=== PATIENT | male | born 1960 | race Caucasian/White ===

== ENCOUNTER 2017-08-24 08:44 | Emergency (ER) | payer OTHER ==
[~2017-08-24] VITALS: Ht 177.8 cm; Wt 68.0 kg
[~2017-08-24 08:44] MED LIST: AMOXICILLIN875 MG PO; ASPIRIN325 OR; CHANTIX1 MG; CO Q-10100 MG PO; CRESTOR20 MG PO; IBUPROFEN 800800 MG PO; IMDUR 30 MG TAB30 M1 PO; KEFLEX500 MG PO; LISINOPRIL10 MG PO; LOPRESSOR; LOPRESSOR25 PO; METFORMIN HCL500 MG PO; MINIPRIN81 MG; MYLANTA 12 OZ355 M1 OR; NITROGLYCERIN0.4 MG SUBLING; NORCO 5-325 TA1 EACH PO; PAIN & FEVER325 MG PO; PERCOCET 5-3251 EACH PO; PLAVIX 75 MG TA75 MG PO; PRINIVIL; PROTONIX40 M2 PO; TOPROL XL25 MG PO; VITCB500GO PO; ZANTAC 150MG T150 MG PO; [UNRECOGNIZED DRUG - OTHER]
[2017-08-24] MEDS ORDERED: BACTRIM DS TAB1 EACH PO (09:20)
[2017-08-24] MEDS ORDERED: TRAMADOL 50 MG50 MG PO (09:20)
[2017-08-24] MEDS ORDERED: KEFLEX500 M1 PO (09:20)
[2017-08-24 10:00] VITALS: BP 153/95
== END 2017-08-24 10:06 | disposition home or self-care (01) ==
LOC: M.ERS 08:44
DX: S51.011A Laceration without foreign body of right elbow, initial encounter (principal); L08.89 Other specified local infections of the skin and subcutaneous tissue; K21.9 Gastro-esophageal reflux disease without esophagitis; I10 Essential (primary) hypertension; E78.00 Pure hypercholesterolemia, unspecified; E11.9 Type 2 diabetes mellitus without complications; F10.99 Alcohol use, unspecified with unspecified alcohol-induced disorder; Z95.5 Presence of coronary angioplasty implant and graft; Z88.8 Allergy status to other drugs, medicaments and biological substances; W18.39XA Other fall on same level, initial encounter; Y93.89 Activity, other specified; Y92.89 Other specified places as the place of occurrence of the external cause; Y99.8 Other external cause status

== ENCOUNTER 2017-12-09 21:17 | Emergency (ER) | payer OTHER ==
[~2017-12-09] VITALS: Ht 180.3 cm; Wt 69.3 kg
[~2017-12-09 21:17] MED LIST changes: +BACTRIM DS TAB1 EACH PO; +KEFLEX500 M1 PO; +TRAMADOL 50 MG50 MG PO
[2017-12-09 21:47] LABS: ABSOLUTE BASOPHILS 0.1 thou/uL (0.0-0.2); ABSOLUTE EOSINOPHILS 0.1 thou/uL (0.0-0.7); ABSOLUTE LYMPHOCYTES 2.1 thou/uL (0.8-5.3); ABSOLUTE MONOCYTES 0.7 thou/uL (0.0-1.2); ABSOLUTE NEUTROPHILS 3.6 thou/uL (1.6-8.1); BASOPHILS 0.9 %; EOSINOPHILS 1.3 %; HEMATOCRIT 47.1 % (42.0-52.0); HEMOGLOBIN 15.9 gm/dL (14.0-18.0); LYMPHOCYTES 31.8 %; MCH 32.1 pg (26.0-34.0); MCHC 33.9 g/dL (28.0-37.0); MCV 94.9 fL (80.0-100.0); MPV 8.5 fl. (7.2-11.1); NUCLEATED RBCS 0 /100WBC; PLATELET COUNT* 255 thou/uL (150-400); RBC 4.96 mil/uL (4.50-6.00); RDW-CV 14.8 % (10.5-14.5); WBC 6.5 thou/uL (4.0-11.0)
[2017-12-09 21:58] LABS: CALCIUM 8.7 mg/dL (8.5-10.1); CREATININE 1.1 mg/dL (0.6-1.3); POTASSIUM 3.3 mmol/L (3.5-5.1)
[2017-12-09 22:02] LABS: ALBUMIN 3.9 g/dL (3.4-5.0); TOTAL BILIRUBIN 0.4 mg/dL (<0.1-1.0); TOTAL PROTEIN 7.3 g/dL (6.4-8.2)
[2017-12-09 22:05] LABS: ACETAMINOPHEN < 2 ug/mL (10-30); ALCOHOL 236 mg/dL (<10); SALICYLATE < 2.8 mg/dL (2.8-20.0)
[2017-12-10 03:45] LABS: URINE BILIRUBIN NEGATIVE (Negative); URINE BLOOD NEGATIVE (Negative); URINE CLARITY CLEAR; URINE COLOR YELLOW; URINE GLUCOSE-RANDOM NEGATIVE (Negative); URINE KETONES NEGATIVE (Negative); URINE LEUKOCYTES-REFLEX NEGATIVE (Negative); URINE NITRITE-REFLEX NEGATIVE (Negative); URINE PROTEIN NEGATIVE (Negative); URINE UROBILINOGEN 0.2 E.U./dl (0.2-1.0)
[2017-12-10 03:53] LABS: AMP/METHAMP Negative (Negative); BARBITURATES Negative (Negative); BENZODIAZEPINES Negative (Negative); COCAINE Negative (Negative); METHADONE Negative (Negative); OPIATES Negative (Negative); PCP Negative (Negative); THC Negative (Negative)
[2017-12-10 06:21] VITALS: BP 147/97
== END 2017-12-10 06:25 | disposition home or self-care (01) ==
LOC: M.ERS 21:17
PROVIDERS: Family Medicine
DX: S51.812A Laceration without foreign body of left forearm, initial encounter (principal); F10.129 Alcohol abuse with intoxication, unspecified; K21.9 Gastro-esophageal reflux disease without esophagitis; E78.00 Pure hypercholesterolemia, unspecified; I10 Essential (primary) hypertension; E11.9 Type 2 diabetes mellitus without complications; F32.9 Major depressive disorder, single episode, unspecified; Z95.5 Presence of coronary angioplasty implant and graft; Z88.8 Allergy status to other drugs, medicaments and biological substances; W26.8XXA Contact with other sharp object(s), not elsewhere classified, initial encounter; Y93.89 Activity, other specified; Y92.89 Other specified places as the place of occurrence of the external cause; Y99.8 Other external cause status

== ENCOUNTER 2018-01-26 02:48 | Emergency (ER) | payer OTHER ==
[~2018-01-26] VITALS: Ht 177.8 cm; Wt 69.0 kg
[2018-01-26] MEDS ORDERED: METFORMIN HCL500 MG (03:00)
[2018-01-26 03:16] LABS: URINE BILIRUBIN NEGATIVE (Negative); URINE BLOOD NEGATIVE (Negative); URINE CLARITY CLEAR; URINE COLOR YELLOW; URINE GLUCOSE-RANDOM NEGATIVE (Negative); URINE KETONES NEGATIVE (Negative); URINE LEUKOCYTES-REFLEX NEGATIVE (Negative); URINE NITRITE-REFLEX NEGATIVE (Negative); URINE PROTEIN NEGATIVE (Negative); URINE SPECIFIC GRAVITY 1.015 (1.005-1.030); URINE UROBILINOGEN 0.2 E.U./dl (0.2-1.0)
[2018-01-26 03:30] LABS: ABSOLUTE BASOPHILS 0.1 thou/uL (0.0-0.2); ABSOLUTE EOSINOPHILS 0.2 thou/uL (0.0-0.7); ABSOLUTE LYMPHOCYTES 1.4 thou/uL (0.8-5.3); ABSOLUTE MONOCYTES 0.6 thou/uL (0.0-1.2); ABSOLUTE NEUTROPHILS 4.4 thou/uL (1.6-8.1); BASOPHILS 0.8 %; EOSINOPHILS 2.4 %; HEMATOCRIT 42.5 % (42.0-52.0); HEMOGLOBIN 14.4 gm/dL (14.0-18.0); LYMPHOCYTES 21.3 %; MCHC 33.8 g/dL (28.0-37.0); MCV 94.8 fL (80.0-100.0); MONOCYTES 8.4 %; MPV 8.4 fl. (7.2-11.1); NUCLEATED RBCS 0 /100WBC; PLATELET COUNT* 261 thou/uL (150-400); POLYS 67.1 %; RBC 4.48 mil/uL (4.50-6.00); RDW-CV 15.7 % (10.5-14.5); WBC 6.6 thou/uL (4.0-11.0)
[2018-01-26 03:46] LABS: ANION GAP 3 mmol/L (7-16); BUN 12 mg/dL (7-18); CALCIUM 9.9 mg/dL (8.5-10.1); CHLORIDE 105 mmol/L (98-107); CO2 33 mmol/L (21-32); CREATININE 1.1 mg/dL (0.6-1.3); GLUCOSE 133 mg/dL (70-99); POTASSIUM 4.1 mmol/L (3.5-5.1); SODIUM 141 mmol/L (136-145)
[2018-01-26 03:56] LABS: ALBUMIN 3.6 g/dL (3.4-5.0); ALKALINE PHOSPHATASE 45 U/L (46-116); LIPASE 189 U/L (73-393); SGOT 38 U/L (15-37); SGPT 36 U/L (30-65); TOTAL BILIRUBIN 0.4 mg/dL (<0.1-1.0); TROPONIN-I LEVEL <0.06 ng/mL (<0.06)
[2018-01-26] MEDS ORDERED: HYDROCODON-ACE1 EAC7 PO (06:29)
[2018-01-26] MEDS ORDERED: ZOFRAN4 MG PO (06:29)
[2018-01-26 06:36] VITALS: BP 137/82
--- NOTE | 2018-01-26 14:31 | EKG ---
[place] [address] ELECTROCARDIOGRAM REPORT Name: CHAPISOMAYRA SANDRA Room: [facility]#: [id number] Admission: 01/26/18 Attend Phys: Discharge: 01/26/18 Date of : 60 Report #: [id number] THIS REPORT FOR: //name// [facility] ED Test Date: 2018-01-26 Test Time: 03:13:31 Pat Name: OMAYRA NATION Department: Room: Gender: M Hospital Intern: MS : 1960 Requested By: Mahamed Goldberg Order Number: [id number] MD: Jose Juan Barry Measurements Intervals [place] Rate: 56 P: 48 WV: 162 QRS: 53 QRSD: 92 T: 40 QT: 419 QTc: 405 Interpretive Statements Sinus rhythm Probable left atrial enlargement Compared to ECG 06/24/2017 03:48:33 No significant changes Electronically Signed On 01-26-2018 14:31:26 CDT by Jose Juan Barry [email or web address] <ELECTRONICALLY SIGNED> By: Jose Juan Barry MD, [facility] 01/26/18 1431 2 2 Jose Juan Barry MD, [facility] /EPI
== END 2018-01-26 06:39 | disposition home or self-care (01) ==
LOC: M.ERS 02:48
PROVIDERS: Emergency Medicine
DX: R10.13 Epigastric pain (principal); K21.9 Gastro-esophageal reflux disease without esophagitis; E78.00 Pure hypercholesterolemia, unspecified; I10 Essential (primary) hypertension; E11.9 Type 2 diabetes mellitus without complications; Z95.5 Presence of coronary angioplasty implant and graft; Z88.8 Allergy status to other drugs, medicaments and biological substances

== ENCOUNTER 2019-07-15 06:43 | Emergency (ER) | payer OTHER ==
[~2019-07-15] VITALS: Ht 177.8 cm; Wt 49.9 kg
[~2019-07-15 06:43] MED LIST changes: +HYDROCODON-ACE1 EAC7 PO; +METFORMIN HCL500 MG; +ZOFRAN4 MG PO
[2019-07-15 08:41] LABS: ABSOLUTE LYMPHOCYTES 0.7 thou/uL (0.8-5.3); ABSOLUTE MONOCYTES 0.5 thou/uL (0.0-1.2); ABSOLUTE NEUTROPHILS 5.9 thou/uL (1.6-8.1); BASOPHILS 0.6 %; EOSINOPHILS 0.3 %; HEMATOCRIT 49.6 % (42.0-52.0); HEMOGLOBIN 17.5 gm/dL (14.0-18.0); LYMPHOCYTES 10.3 %; MCH 35.2 pg (26.0-34.0); MCHC 35.3 g/dL (28.0-37.0); MCV 99.9 fL (80.0-100.0); MPV 7.5 fl. (7.2-11.1); NUCLEATED RBCS 0 /100WBC; PLATELET COUNT* 233 thou/uL (150-400); POLYS 81.8 %; RBC 4.97 mil/uL (4.50-6.00); RDW-CV 12.9 % (10.5-14.5); WBC 7.2 thou/uL (4.0-11.0)
[2019-07-15 08:53] LABS: APTT 23.9 Seconds (25.0-31.3); INR 1.1; PROTIME 11.1 Seconds (9.20-11.50)
[2019-07-15 08:55] LABS: CALCIUM 7.9 mg/dL (8.5-10.1); POTASSIUM 3.8 mmol/L (3.5-5.1)
[2019-07-15 09:06] LABS: ALBUMIN 3.4 g/dL (3.4-5.0); CK-MB MASS 0.6 ng/mL (<0.5-3.6); MAGNESIUM 1.6 mg/dL (1.8-2.4); TOTAL BILIRUBIN 0.3 mg/dL (<0.1-1.0); TOTAL PROTEIN 6.8 g/dL (6.4-8.2)
[2019-07-15 10:54] VITALS: BP 188/111
[2019-07-15] MEDS ORDERED: NYSTATIN100000 UNI SW&SWALLOW (10:58)
--- NOTE | 2019-07-15 13:44 | EKG ---
[place] [address] ELECTROCARDIOGRAM REPORT Name: NATIONOMAYRA SANDRA Room: 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 : 1960 Requested By: Raghu Castanon Order Number: [id number] MD: Clifton Leach Measurements Intervals [place] Rate: 94 P: 75 CT: 141 QRS: 56 QRSD: 94 T: 2 QT: 363 QTc: 454 Interpretive Statements Sinus rhythm Possible left atrial enlargement Compared to ECG 01/26/2018 03:13:31 No significant changes Electronically Signed On 07-15-2019 13:44:28 ACCESS REPRESENTATIVE by Clifton Leach [email or web address] <ELECTRONICALLY SIGNED> By: Clifton Leach MD, [facility] 07/15/19 1344 0647 0647 Clifton Leach MD, FACC /EPI
== END 2019-07-15 10:54 | disposition home or self-care (01) ==
LOC: M.ERS 06:43
PROVIDERS: Family Medicine
DX: R07.89 Other chest pain (principal); R11.2 Nausea with vomiting, unspecified; B37.0 Candidal stomatitis; F10.129 Alcohol abuse with intoxication, unspecified; Y90.6 Blood alcohol level of 120-199 mg/100 ml; K21.9 Gastro-esophageal reflux disease without esophagitis; E78.00 Pure hypercholesterolemia, unspecified; Z95.5 Presence of coronary angioplasty implant and graft

== ENCOUNTER 2020-04-15 12:48 | Emergency (ER) | payer OTHER ==
[~2020-04-15] VITALS: Ht 177.8 cm; Wt 69.8 kg
[~2020-04-15 12:48] MED LIST changes: +NYSTATIN100000 UNI SW&SWALLOW
[2020-04-15] MEDS ORDERED: VITAMIN C1000 MG PO (13:05)
[2020-04-15] MEDS ORDERED: NORCO 5-325 TA1 EAC2 PO (14:19)
[2020-04-15] MEDS ORDERED: FLEXERIL PO (14:19)
[2020-04-15 14:39] VITALS: BP 133/83
== END 2020-04-15 14:40 | disposition home or self-care (01) ==
LOC: M.ERS 12:48
DX: S32.040A Wedge compression fracture of fourth lumbar vertebra, initial encounter for closed fracture (principal); M25.551 Pain in right hip; K21.9 Gastro-esophageal reflux disease without esophagitis; E78.00 Pure hypercholesterolemia, unspecified; I10 Essential (primary) hypertension; E11.9 Type 2 diabetes mellitus without complications; Z79.899 Other long term (current) drug therapy; W18.39XA Other fall on same level, initial encounter; Y93.89 Activity, other specified; Y92.89 Other specified places as the place of occurrence of the external cause; Y99.8 Other external cause status

== ENCOUNTER 2021-03-13 09:42 | Observation (INO) | payer OTHER ==
[2021-03-13] VITALS (19 sets, daily range): BP systolic 129–182; BP diastolic 70–109
[~2021-03-13] VITALS: Ht 180.3 cm; Wt 73.5 kg
--- NOTE | ~2021-03-13 | H ---
[address] [address] HISTORY AND PHYSICAL Name: OMAYRA NATION Room: [address] Lexi Shay#: [id number] Admission: 03/13/21 Attend Phys: Lamine Fajardo MD, Discharge: 03/14/21 Date of : 60 Report #: [id number] THIS REPORT FOR: cc: Heaven Diallo MD, Lin W. MD [facility],Medical Records Staff ~ Please refer to the History and Physical performed in the physician's office. By: 1315Medical Records Staff [facility] /DARYN
[~2021-03-13 09:42] MED LIST changes: +ADULT LOW DOSE81 MG PO; +FLEXERIL PO; +LISINOPRIL20 MG PO; +NITROSTAT0.4 M1 SUBLING; +NORCO 5-325 TA1 EAC2 PO; +PROTONIX 20 MG20 MG PO; +TOPROL XL50 MG PO; +VITAMIN C1000 MG PO; +VITAMIN C500 MG/15 PO; +VITAMIN D21250 MCG PO
[2021-03-13 10:42] LABS: HEMATOCRIT 42.2 % (42.0-52.0); HEMOGLOBIN 14.7 gm/dL (14.0-18.0); MCH 34.3 pg (26.0-34.0); MCHC 34.9 g/dL (28.0-37.0); MCV 98.2 fL (80.0-100.0); MPV 8.3 fl. (7.2-11.1); RBC 4.3 mil/uL (4.50-6.00); RDW-CV 12.8 % (10.5-14.5); WBC 6.3 thou/uL (4.0-11.0)
[2021-03-13 10:48] LABS: ANION GAP 9 mmol/L (7-16); BUN 10 mg/dL (7-18); CALCIUM 8.8 mg/dL (8.5-10.1); CHLORIDE 104 mmol/L (98-107); CO2 27 mmol/L (21-32); GLUCOSE 106 mg/dL (70-99); POTASSIUM 4.2 mmol/L (3.5-5.1); SODIUM 140 mmol/L (136-145)
[2021-03-13 10:51] LABS: APTT 26.7 Seconds (25.0-31.3); PROTIME 10.7 Seconds (9.20-11.50)
[2021-03-13 10:53] LABS: ALBUMIN 3.9 g/dL (3.4-5.0); ALKALINE PHOSPHATASE 61 U/L (46-116); CHOLESTEROL 167 mg/dL (<200); HDL CHOLESTEROL 59 mg/dL (>40); LDL CHOLESTEROL 82 mg/dL (<100); SGOT 64 U/L (15-37); SGPT 87 U/L (30-65); TC:HDL 2.8 Ratio (Not establshd); TOTAL BILIRUBIN 0.4 mg/dL (<0.1-1.0); TRIGLYCERIDE 133 mg/dL (<150); VLDL 27 mg/dL (<40)
[2021-03-13] MEDS ORDERED: IMDUR 30 MG TAB30 M1 PO (10:58)
[2021-03-13 11:00] LABS: SERUM ASSESSMENT Clear
--- NOTE | 2021-03-13 11:18 | EKG ---
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 Specialist: DONALDO : 1960 Requested By: Lamine Fajardo Order Number: [id number] Alberto MD: Lamine Fajardo Measurements Intervals [place] Rate: 71 P: 35 NV: 153 QRS: 14 QRSD: 90 T: 9 QT: 404 QTc: 439 Interpretive Statements Sinus rhythm Compared to ECG 07/15/2019 06:47:25 No significant changes Electronically Signed On 03-13-2021 11:18:00 CDT by Lamine Fajardo [email or web address] <ELECTRONICALLY SIGNED> By: Lamine Fajardo MD, [facility] 03/13/21 1118 1053 1053 Lamine Fajardo MD, [facility] /EPI
--- NOTE | 2021-03-13 14:33 | CARD ---
[address] [address] CARDIAC CATH REPORT Name: OMAYRA NATION Room: [address] M.R.#: [id number] Admission: 03/13/21 Attend Phys: Lamine Fajardo MD, Discharge: Date of : 60 Report #: [id number] THIS REPORT FOR: cc: Heaven Diallo MD, Lin W. MD Holkins, John M. 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 Performed Left Heart Cath w/or w/o Coronaries [id number] [facility] [address] w/wo Plasty Single RCA 231197 [facility] Place w/wo Plasty Single RCA [id number] Hemostasis w/ Angioseal Indication Unstable angina Risk Factors Hypercholesterolemia, Hypertension Previous Procedures/Diagnoses Previous PCI Admission/Lab Medications/Medications given during procedure Fentanyl IV 25 mcg, Midazolam (Versed) IV 2 mg, Lidocaine Subcut 20 ml, Angiomax IV 11 ml, Angiomax IV 25.77 ml per hr, Angiomax IV 4 ml, Aspirin PO 162 mg, Effient PO 60 mg Procedure Narrative The patient was brought electively to the Cardiac Catheterization Laboratory and was prepped and draped in a sterile manner. The right femoral was infiltrated with 2% Lidocaine subcutaneous anesthesia. IV conscious sedation was used throughout procedure with appropriate monitoring and was performed in the presence of a registered nurse who was an independent trained observer other [place] [address] CARDIAC CATH REPORT Name: OMAYRA NATION [address]#: [id number] Admission: 03/13/21 Attend Phys: Lamine Fajardo MD, Discharge: Date of : 60 Report #: [id number] performing the procedure. A Catano 6 FR sheath was inserted into the right femoral artery. Coronary angiography was performed using coronary diagnostic catheters. The right coronary system was accessed and visualized with a Diagnostic 3DRC 6Fr catheter. The left coronary system was accessed and visualized with a Diagnostic JL4 6Fr catheter. The left ventricle was accessed and visualized with a Diagnostic Pigtail 6Fr catheter. Left ventricular/Aortic Valve gradient assessed via catheter pullback. Left ventriculogram was performed in MARYELLEN projection. Pre-demployment femoral angiogram was performed . Closure device was deployed with a 6 Fr Angioseal. The patient tolerated the procedure well and there were no complications associated with the procedure. There was no hematoma. Intraoperative Conscious Sedation Sedation start time: 112 Case end Time: 1215 Fentanyl 25 mcg Versed 2 mg Fluoro Time: 12.4 minutes Dose: DAP 193796 cGycm2 1794.84 mGy Contrast Type and Amount: Omnipaque 160 ml Coronary Angiography The patient's coronary anatomy is right dominant. Diagnostic Cath Left Main 0% narrowing LAD 60% tubular calcified proximal LAD stenosis Circumflex 50% proximal first marginal stenosis with a 70% focal stenosis of the midportion of the nondominant circumflex Right Coronary Large dominant vessel with 30% proximal narrowing and a widely patent proximal stent followed by aneurysmal dilatation with 90% mid LAD stenosis and 30% distal narrowing Left Ventriculography The left ventricle is normal in size with normal contractility. The left ventricular ejection fraction is estimated to be 60-65%. Left ventricular wall motion abnormalities are not present. There is no mitral insufficiency. Hemodynamics The aortic pressure is 139/76 mmHg with a mean of 101 mmHg. The left ventricular pressure is 132/0 mmHg with a mean of mmHg. The left ventricular end diastolic pressure is 4 [place] [address] CARDIAC CATH REPORT Name: OMAYRA NATION Room: [address]#: [id number] Admission: 03/13/21 Attend Phys: Lamine Fajardo MD, Discharge: Date of : 60 Report #: [id number] PCI Technique Lesion Anticoagulation was achieved with Angiomax. Percutaneous coronary intervention was performed on the mid right coronary artery. The lesion stenosis prior to intervention was 90% with TAISHA 3 flow. A 6F IM 100CM Guide Catheter was used to engage the Right ostium. A IG: ProwaterFlex 180CM Interventional Guidewire was used to cross the lesion. BALLOON DILATION A Balloon catheter Trek RX 2.5 X 12 was inserted and inflated up to 15.00atm for 11seconds. Additional Inflation: 16.00atm for 12seconds. STENT DEPLOYMENT A drug-eluting stent [place] RX Stent 2.5X15mm was inserted and inflated up to 15.00atm for 12seconds. Additional Inflation: 17.00atm for 13seconds. Final angiography reveals 10 % stenosis with TAISHA 3 flow. COMMENTS The PCI was technically complex by virtue of marked calcification and tortuosity of the right coronary artery. This required use of a jaylyn wire system and significant manipulation prior to final stent deployment in the midportion of the dominant right coronary artery Conclusion 1. Significant coronary artery disease characterized by the following: A 60% tubular calcified proximal LAD stenosis B 50% proximal first marginal narrowing with 70% focal mid circumflex stenosis C dominant right coronary artery with 30% proximal narrowing followed by widely patent stent with aneurysmal dilatation beyond the stent; there was 90% mid right coronary stenosis with 30% distal narrowing 2. Normal left ventricular systolic function, estimated ejection fraction of 60-65% [place] [address] CARDIAC CATH REPORT Name: OMAYRA NATION Room: [address] Lexi Shay#: [id number] Admission: 03/13/21 Attend Phys: Lamine Fajardo MD, Discharge: Date of : 60 Report #: [id number] 3. Normal left-sided hemodynamic study 4. Successful PCI with deployment of a drug-eluting stent at the site of 90% mid right coronary stenosis with 10% residual narrowing and TAISHA-3 flow to the distal vessel Recommendations Cardiac Risk Reduction Program Aggressive Medical Therapy Medications Administered Aspirin (any) Prasugrel Diagnostic Cath Approved by: Lamine Fajardo MD Date/Time: 03/13/2021 14:30:42 <ELECTRONICALLY SIGNED> By: Lamine Fajardo MD, [facility] 03/13/21 1433 143 1433Lamine Fajardo MD, FACC /INF
--- NOTE | 2021-03-13 15:29 | EKG ---
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
[2021-03-14] VITALS: BP 167/100
[2021-03-14 04:00] VITALS: BP 177/104
[2021-03-14 04:54] LABS: HEMATOCRIT 43.1 % (42.0-52.0); HEMOGLOBIN 14.8 gm/dL (14.0-18.0); MCH 34.3 pg (26.0-34.0); MCHC 34.3 g/dL (28.0-37.0); MCV 99.9 fL (80.0-100.0); MPV 8.8 fl. (7.2-11.1); RBC 4.32 mil/uL (4.50-6.00); RDW-CV 12.8 % (10.5-14.5); WBC 8.5 thou/uL (4.0-11.0)
[2021-03-14 05:41] LABS: ALBUMIN 3.9 g/dL (3.4-5.0); CALCIUM 8.6 mg/dL (8.5-10.1); CK-MB MASS 1.1 ng/mL (<0.5-3.6); POTASSIUM 4.1 mmol/L (3.5-5.1); TOTAL BILIRUBIN 0.4 mg/dL (<0.1-1.0)
--- NOTE | 2021-03-14 06:02 | NUR ---
PATIENT SLEPT PART OF THE NIGHT. RIGHT GROIN CATH SITE REMAINS SOFT WITH NO HEMATOMA. DRESSING REMAINS DRY AND INTACT. PATIENT HAS REMAINED SR WITH OCCASIONAL PVC'S ON THE MONITOR. BP HAS BEEN A LITTLE ELEVATED DR CALDERON WAS CALLED THIS MORNING AND ORDERS RECEIVED FOR ONE TIME DOSE OF HYDRALZINE. PATIENT SHOULD DC HOME TODAY. WILL CONTINUE TO MONITOR.
[2021-03-14 06:30] VITALS: BP 175/96
[2021-03-14 08:00] VITALS: BP 178/98
[2021-03-14] MEDS ORDERED: EFFIENT10 MG PO ×2 (08:25→09:50)
[2021-03-14] MEDS ORDERED: LISINOPRIL20 MG PO ×2 (08:27→09:50)
[2021-03-14 11:39] VITALS: BP 178/98
--- NOTE | 2021-03-14 14:08 | NUR ---
Nutrition: Pt admitted with chest pain. Consult was received for pt's fiance requesting RD about DM and heart health. Pt discharged before RD could see him. I spoke with Kacy, senior site manager and she stated pt plans to call his insurance and find an outpaitent RD in network for him. I did call pt at [phone] and left a message for him to call me with any questions/concerns/needs.
--- NOTE | 2021-03-14 16:18 | EKG ---
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 : 1960 Requested By: Lamine Fajardo Order Number: [id number] Reading MD: Lamine Fajardo Measurements Intervals [place] Rate: 63 P: 31 [place]: 155 QRS: 3 QRSD: 93 T: 14 QT: 432 QTc: 443 Interpretive Statements Sinus rhythm Probable left atrial enlargement Compared to ECG 03/13/2021 12:52:32 No significant changes Electronically Signed On 03-14-2021 16:18:03 CDT by Lamine Fajardo [email or web address] <ELECTRONICALLY SIGNED> By: Lamine Fajardo MD, [facility] 03/14/21 1618 0622 0622 Lamine Fajardo MD, [facility] /EPI
--- NOTE | 2021-03-15 09:10 | D ---
[address] [address] DISCHARGE SUMMARY Name: OMAYRA NATION Room: [address] Lexi Shay#: [id number] Admission: 03/13/21 Attend Phys: Lamine Fajardo MD, Discharge: 03/14/21 Date of : 60 Report #: [id number] THIS REPORT FOR: cc: Heaven Diallo MD, Lin W. MD Holkins,Lamine Sinha MD [facility] ~ DATE OF DISCHARGE: 03/14/2021 DISCHARGE DIAGNOSES: 1. Unstable angina. 2. Status post PCI to the mid right coronary artery with deployment of a drug-eluting stent. 3. Hypertension. 4. Hyperlipidemia. 5. Type 2 diabetes. 6. Tobacco abuse. PROCEDURES: 03/13/2021 -- left heart catheterization, left ventriculography, selective coronary arteriography, and percutaneous coronary intervention with deployment of drug-eluting stent at the site of 90% mid right coronary stenosis. HOSPITAL COURSE: The patient is a pleasant 60-year-old male with multiple risk factors for coronary disease and a history of a prior multivessel stenting. Recently, he has noted frequent episodes of exertional chest discomfort compatible with angina. They have become more frequent and more severe following a pattern of unstable angina. He has underlying diabetes, hyperlipidemia, hypertension and tobacco abuse. He has been medication noncompliant for some time but has recently regained new insurance and is eager to resume medical therapy for same. In the context of unstable angina, cardiac catheterization was performed on 03/13/2021. That study revealed significant coronary artery disease, characterized by the following: A. 30% proximal right coronary narrowing with widely patent stent. Subsequent to that aneurysmal dilatation, 90% mid right coronary stenosis. B. 60% calcified tubular proximal LAD narrowing. C. 60-70% posterior division circumflex narrowing with 30% first marginal narrowing. Left ventricular function was normal. Given this data, I elected to proceed with PCI, deploying one 2.5 x 15 mm Constantine drug-eluting stent in the mid right coronary artery with 10% residual narrowing and TAISHA 3 flow, distal vessel. The patient did well post-procedurally without chest pain. Laboratory on 03/14 [place] [address] DISCHARGE SUMMARY Name: OMAYRA NATION Room: [address] Jaspal#: [id number] Admission: 03/13/21 Attend Phys: Lamine Fajardo MD, Discharge: 03/14/21 Date of : 60 Report #: [id number] revealed sodium 142, potassium 4.1, BUN 14, creatinine 1.0, glucose 113. Hemoglobin 14.8, white blood cell count 8500 with 207,000 platelets. Cholesterol 167, triglycerides 133, HDL 59, LDL 82. CK-MB post-procedurally within the reference range at 1.1. The patient ambulated in the hallways without difficulty and there was good hemostasis at the right femoral site of catheterization. He was discharged home on the following medications: Prasugrel or Effient 10 mg daily, lisinopril 20 mg b.i.d., aspirin 81 mg daily, metformin 500 mg b.i.d., metoprolol succinate 25 mg daily, p.r.n. sublingual nitroglycerin, rosuvastatin or Crestor 20 mg daily, vitamin C 1000 mg daily and Imdur 30 mg daily. The patient is scheduled to return to see my nurse practitioner on 03/27/2021. I would see him in 4-6 weeks later in followup. Therefore, the patient is discharged home in stable condition on the aforementioned medications with followup as described above. <ELECTRONICALLY SIGNED> By: Lamine Fajardo MD, [facility] 03/15/21 0910 1019 1049Lamine Fajardo MD, [facility] /nt
== END 2021-03-14 12:00 | disposition home or self-care (01) ==
LOC: M.CL 09:42 → M.TBA-CV 12:28 → M.2W 16:43
PROVIDERS: ADMIT Internal Medicine; ATTEND Internal Medicine
DX: I25.110 Atherosclerotic heart disease of native coronary artery with unstable angina pectoris (principal); Z20.822 Contact with and (suspected) exposure to COVID-19; I10 Essential (primary) hypertension; E78.5 Hyperlipidemia, unspecified; E11.9 Type 2 diabetes mellitus without complications; F17.200 Nicotine dependence, unspecified, uncomplicated; Z88.1 Allergy status to other antibiotic agents; Z79.899 Other long term (current) drug therapy